=== PATIENT | female | born 1960 | race Two or more races ===

== ENCOUNTER 2017-01-27 18:22 | Emergency (ER) | payer OTHER ==
[~2017-01-27] VITALS: Ht 162.6 cm; Wt 68.0 kg
[~2017-01-27 18:22] MED LIST: AMLO10TA4 PO; ROSU20TA PO
--- NOTE | 2017-01-27 18:30 | NUR ---
Bib self c/o feeling weak x 4 days, nad noted, vss, ekg done, waiting for md cosme.
[2017-01-27] MEDS ORDERED: HYDROCODONE/APAP 5/325MG 1 EACH TABLET PO STA (18:44)
[2017-01-27 18:55] LABS: BASOPHILS # (AUTO) 0.1 /CMM (0.0-0.2); BASOPHILS % (AUTO) 0.7 % (0.0-2.0); EOSINOPHILS # (AUTO) 0.2 /CMM (0.0-0.7); HEMATOCRIT 46 % (33-45); HEMOGLOBIN 15.6 g/dL (11.5-14.8); MEAN CORPUSCULAR HEMOGLOBIN 29 PG (26.0-33.0); MEAN CORPUSCULAR HGB CONC 34 g/dl (31.0-36.0); MEAN CORPUSCULAR VOLUME 86 fL (82-100); MONOCYTES # (AUTO) 0.4 /CMM (0.1-1.30); MONOCYTES % (AUTO) 5.5 % (2.0-12.0); NEUTROPHILS # (AUTO) 3.5 /CMM (1.8-8.9); NEUTROPHILS % (AUTO) 48.8 % (43.0-81.0); PLATELET COUNT (AUTO) 230 /CMM (150-450); RDW COEFFICIENT OF VARIATION 12.9 (11.5-15.0); WHITE BLOOD COUNT (AUTO) 7.2 K/uL (4.3-11.0)
[2017-01-27] MEDS ORDERED: HYDROCODONE/APAP 5/325MG 1 EACH TABLET ONE (18:56)
[2017-01-27 19:03] LABS: CALCIUM, SERUM 9.1 mg/dL (8.5-10.1); CARBON DIOXIDE 29 mmol/L (21-32); CHLORIDE 106 mmol/L (98-107); CREATININE 0.8 mg/dL (0.6-1.3); GLUCOSE 134 mg/dL (74-106); POTASSIUM 3.4 mmol/L (3.5-5.1); SODIUM SERUM 140 mmol/L (136-145); UREA NITROGEN, BLOOD 17 mg/dL (7-18)
[2017-01-27 19:07] LABS: INR 0.88 (0.87-1.13); PROTHROMBIN TIME 9.1 SECS (9.5-12.7)
[2017-01-27 19:09] LABS: ALANINE AMINOTRANSFERASE 15 U/L (12-78); ALBUMIN 3.6 g/dL (3.4-5.0); ALKALINE PHOSPHATASE 71 U/L (46-116); ASPARTATE AMINOTRANSFERASE 3 U/L (15-37); BILIRUBIN,DIRECT 0.1 mg/dL (0.0-0.2); BILIRUBIN,TOTAL 0.2 mg/dL (0.2-1.0); TOTAL PROTEIN, SERUM 7.2 g/dL (6.4-8.2)
[2017-01-27 19:11] LABS: TROPONIN I < 0.017 ng/mL (0.00-0.056)
[2017-01-27] MEDS ORDERED: POTASSIUM CHLORIDE 20 MEQ TAB.PRT.SR PO ONE ×2 (19:29→19:30)
[2017-01-27 19:45] LABS: APPEARANCE,URINE Clear (CLEAR); BILIRUBIN,URINE Negative (NEGATIVE); BLOOD, URINE Trace-intact Ery/uL (NEGATIVE); COLOR,URINE Yellow (YELLOW); KETONES,URINE Negative (NEGATIVE); LEUKOCYTE ESTERASE ,URINE Negative (NEGATIVE); NITRITE, URINE Negative (NEGATIVE); PROTEIN,URINE Negative (NEGATIVE); UGLUCOSE Negative (NEGATIVE); UROBILINOGEN,URINE 0.2 EU/dL (0.2)
[2017-01-27 19:57] LABS: BACTERIA,URINE None seen /HPF (None Seen); SQUAMOUS EPITHELIAL CELL,UR Few /HPF (None Seen); WBC,URINE 0-2 /HPF (0-3)
[2017-01-27 20:30] VITALS: BP 145/98
== END 2017-01-27 20:32 | disposition home or self-care (01) ==
LOC: ER 18:25
DX: R51 Headache (principal); E87.6 Hypokalemia; I10 Essential (primary) hypertension; F17.200 Nicotine dependence, unspecified, uncomplicated; R79.1 Abnormal coagulation profile; K21.9 Gastro-esophageal reflux disease without esophagitis; Z86.73 Personal history of transient ischemic attack (TIA), and cerebral infarction without residual deficits
CPT/HCPCS: 36415; 70450; 71010; 80048; 80076; 81001; 84484; 85025; 85730; 93005; 99285; A4606; Z7610; 81000-TC

== ENCOUNTER 2017-01-30 19:15 | Emergency (ER) | payer OTHER ==
[~2017-01-30] VITALS: Ht 162.6 cm; Wt 68.0 kg
--- NOTE | 2017-01-30 19:27 | NUR ---
PT BB DAUGHTER; PT AMBULATORY TO ER BED 5 C/O GRADUAL ONSET OF HEADACHE X 4 DAYS. PT AOX3 CANADI[place] SPEAKING, DAUGHTER AT BEDSIDE FOR EVAL. RR EVEN AND UNLABORED. NO SOB NOTED. NAD NOTED. NO NVD AT THIS TIME. PT GOWNED AND PLACED ON MONITOR. NEURO INTACT. PER DAUGHTER HAD BOTOX SEP 17.
--- NOTE | 2017-01-30 19:28 | NUR ---
DR. ZNUIGA AT BEDSIDE FOR EVAL.
--- NOTE | 2017-01-30 19:29 | NUR ---
BS 107 DR. ZUNIGA AWARE.
[2017-01-30] MEDS ORDERED: IV NS 0.9% 250 ML IV ONE (19:52)
[2017-01-30] MEDS ORDERED: IOHEXOL-350 100 ML VIAL IV ONE (19:52)
[2017-01-30] MEDS ORDERED: CT SWABBABLE VALVE TRANS SET 1 EA INFUS.SET MC ONE (19:52)
--- NOTE | 2017-01-30 19:58 | NUR ---
PT TO RADIOLOGY FOR CT HEAD.
[2017-01-30 20:07] LABS: BASOPHILS # (AUTO) 0.1 /CMM (0.0-0.2); CALCIUM, SERUM 9.3 mg/dL (8.5-10.1); CARBON DIOXIDE 27 mmol/L (21-32); CHLORIDE 103 mmol/L (98-107); CREATININE 1.1 mg/dL (0.6-1.3); EOSINOPHILS # (AUTO) 0.2 /CMM (0.0-0.7); EOSINOPHILS % (AUTO) 2.4 % (0.0-6.0); GLUCOSE 99 mg/dL (74-106); HEMATOCRIT 48 % (33-45); HEMOGLOBIN 16.3 g/dL (11.5-14.8); LYMPHOCYTES # (AUTO) 3.3 /CMM (0.8-4.8); LYMPHOCYTES % (AUTO) 44.5 % (20.0-44.0); MEAN CORPUSCULAR HEMOGLOBIN 29 PG (26.0-33.0); MEAN CORPUSCULAR HGB CONC 34 g/dl (31.0-36.0); MEAN CORPUSCULAR VOLUME 86 fL (82-100); MONOCYTES # (AUTO) 0.4 /CMM (0.1-1.30); MONOCYTES % (AUTO) 5.6 % (2.0-12.0); NEUTROPHILS # (AUTO) 3.3 /CMM (1.8-8.9); NEUTROPHILS % (AUTO) 45.5 % (43.0-81.0); PLATELET COUNT (AUTO) 243 /CMM (150-450); POTASSIUM 3.5 mmol/L (3.5-5.1); RDW COEFFICIENT OF VARIATION 12.9 (11.5-15.0); RED BLOOD CELL COUNT(AUTO) 5.58 MIL/uL (4.0-5.2); SODIUM SERUM 139 mmol/L (136-145); UREA NITROGEN, BLOOD 21 mg/dL (7-18); WHITE BLOOD COUNT (AUTO) 7.4 K/uL (4.3-11.0)
[2017-01-30 20:10] LABS: INR 0.92 (0.87-1.13); PROTHROMBIN TIME 9.6 SECS (9.5-12.7)
[2017-01-30 20:16] LABS: TROPONIN I < 0.017 ng/mL (0.00-0.056)
--- NOTE | 2017-01-30 21:20 | NUR ---
DR DARRON GOMEZ. WAITING FOR CALL BACK.
--- NOTE | 2017-01-30 21:37 | NUR ---
DR. ZUNIGA SPEAKING TO PT AND PT DAUGHTER REGARDING POC.
[2017-01-30] MEDS ORDERED: CLON0.2T PO (21:38)
[2017-01-30] MEDS ORDERED: DOXA4TAB3 PO (21:38)
[2017-01-30] MEDS ORDERED: VALS1TAB54 PO (21:38)
--- NOTE | 2017-01-30 21:41 | NUR ---
DR. ZUNIGA SPEAKING TO DR. GARCIA REGARDING POC.
--- NOTE | 2017-01-30 21:42 | NUR ---
DR FILIPE ROB CALLED, TRANSFERRED CALL TO DR ZUNIGA
--- NOTE | 2017-01-30 22:17 | NUR ---
PATIENT GOING TO [facility] ROOM 4410 RN TO RN REPORT OPTION 1 EXT. [id number]
--- NOTE | 2017-01-30 22:18 | NUR ---
CALLED [facility] FOR ALS TRANSPORTATION GOING TO [facility], ETA 45 MIN
--- NOTE | 2017-01-30 22:29 | NUR ---
REPORT GIVEN TO [facility] FOR BED 4410.
[2017-01-30 23:12] VITALS: BP 139/85
--- NOTE | 2017-01-30 23:23 | NUR ---
SPOKE WITH FAUSTINO FROM [facility] AND [employer]IR [employer] COUNSELOR DR JAMIL AND DR ROB SPOKE AND CAME TO AN AGREEMENT FOR PATIENT TRANSFER AND ADMISSION.
--- NOTE | 2017-01-30 23:34 | NUR ---
REPORT GIVEN TO [facility] EMT. PT/ DAUGHTER AWARE PT TO BE TRANSFERRED TO [facility]. PT VSS. IV'S INTACT AND PATENT. NO S/S INFECTION NO INFILTTRATION NOTED. PT WITH ALL BELONGINGS. PER [facility]ON[facility] WITH D/C DOCUMENTATION AND PER EMS TOOK OVER CARE PT TO TRANSFERRED VIA GURNEY TO [facility] BED 4410.
== END 2017-01-30 23:50 ==
LOC: ER 19:19
DX: I67.1 Cerebral aneurysm, nonruptured (principal); R47.81 Slurred speech; I10 Essential (primary) hypertension; E78.5 Hyperlipidemia, unspecified; R79.1 Abnormal coagulation profile; K21.9 Gastro-esophageal reflux disease without esophagitis; F17.210 Nicotine dependence, cigarettes, uncomplicated; Z86.73 Personal history of transient ischemic attack (TIA), and cerebral infarction without residual deficits
CPT/HCPCS: 36415; 70450; 70496; 70498; 71010; 80048; 82962; 84484; 85025; 85730; 87081; 93005; 99291; A4606; J7050; Q9967; Z7610